=== PATIENT | male | born 1980 | race Caucasian/White ===

== ENCOUNTER → 2025-07-07 | Day surgery (SDC) | payer MEDICAID ==
[~2025-07-07] VITALS: Ht 185.4 cm; Wt 129.3 kg
[~2025-07-07] MED LIST: ACETAMINOPHEN 1,000MG/100ML PREMIX IV PRN; ACETAZOLAMIDE SODIUM 500MG/VIAL IV ONE; BALANCED SALT IRRIG SOLN COMB1 500ML OP NR; CYCLOPENTOLATE HCL 1% OPHTH DROPS 2ML LEFTEYE SCH; FAMOTIDINE 20MG/2ML VIAL IV PRN; FENTANYL CITRATE/PF 50MCG/ML 2ML VIAL ONE; HYALURONATE SODIUM 10MG/ML 0.55ML SYRINGE IO ONE; HYDRALAZINE 20MG/ML VIAL IV PRN; HYDROMORPHONE HCL/PF 1MG/ML INJ IV PRN; LABETALOL 5MG/ML 4ML INJ IV PRN; LACTATED RINGERS 1,000 ML IV SCH; MEPERIDINE HCL/PF 25MG/ML CPJ IV PRN; MIDAZOLAM HCL 2 MG/2 ML VIAL ONE; ONDANSETRON HCL 4MG/2ML INJ IV PRN; PHENYLEPHRINE HCL 10% OPHTH DROPS 5ML LEFTEYE SCH; PROPOFOL 200MG/20ML VIAL IV ONE; TROPICAMIDE 1% OPHTH DROPS 15ML LEFTEYE SCH
[2025-07-07 07:14] LABS: BASOPHILS % 1.3 % (0.0-2.0); EOSINOPHILS % 3.6 % (0.0-5.0); HEMATOCRIT. 43.4 % (42.0-52.0); HEMOGLOBIN. 15.0 g/dL (14.0-18.0); LYMPHOCYTES % 30.8 % (20.0-50.0); MEAN PLATELET VOLUME 6.9 fl (7.4-10.4); MONOCYTES % 7.1 % (2.0-8.0); NEUTROPHILS % 57.2 % (40.0-76.0); PLATELET 294 x1000/uL (130-400); RED BLOOD CELL COUNT 5.09 mill/uL (4.7-6.1); RED CELL DISTRIBUTION WIDTH 13.0 % (11.6-14.6)
[2025-07-07 07:33] LABS: CREATININE 0.9 mg/dL (0.6-1.3); UREA NITROGEN BLOOD 11 mg/dL (9-23)
== END | disposition home or self-care (01) ==
LOC: OR 06:40
PROVIDERS: ATTEND Ophthalmology
DX: H25.22 Age-related cataract, morgagnian type, left eye (principal); H25.012 Cortical age-related cataract, left eye; E78.5 Hyperlipidemia, unspecified; Z79.899 Other long term (current) drug therapy; Z98.890 Other specified postprocedural states
CPT/HCPCS: 66982; 80048; 85025; 36415; J3010; J2250; J2704; J1120; J3490; A4217; V2632